=== PATIENT | female | born 1950 ===

== ENCOUNTER 2024-10-17 05:30 | Day surgery (SDC) | payer OTHER ==
[~2024-10-17 05:30] MED LIST: CALTRATE 600 +1 EAC1 PO; DAILY MULTIVIT1 EAC4; ECOTRIN81 MG PO; FENOFIBRIC ACI105 MG; LEVO-T25 MCG PO; LIPITOR20 MG; MOBIC7.5 MG; NEURONTIN300 MG; OMEGA-31000 MG PO; PRILOSEC OTC20 MG; TOPROL XL50 M1 PO; VASOTEC10 MG PO; VITAMIN B122500 MCG
[2024-10-17] MEDS ORDERED: CEFAZOLIN SODIUM 1,000 MG VIAL ONE (08:58)
[2024-10-17] MEDS ORDERED: GENTAMICIN SULFATE 40 MG/ML VIAL ONE (11:55)
[2024-10-17] MEDS ORDERED: ACETAMINOPHEN-1 EAC2 PO (12:50)
[2024-10-17] MEDS ORDERED: MACROBID 100 M100 MG PO (12:51)
[2024-10-17] MEDS ORDERED: MORPHINE SULFATE 4 MG/ML VIAL IV ONE ×2 (14:15→15:15)
== END 2024-10-17 18:50 | disposition home or self-care (01) ==
LOC: CIR.AMB 05:30
PROVIDERS: ATTEND Obstetrics & Gynecology Gynecology
DX: N81.11 Cystocele, midline (principal); Z88.6 Allergy status to analgesic agent; I10 Essential (primary) hypertension